=== PATIENT | male | born 1960 | race Caucasian/White ===

== ENCOUNTER → 2021-07-22 10:49 | Outpatient (CLI) | payer OTHER, SELFPAY ==
--- NOTE | 2021-07-22 10:51 | DI.RAD.S_ITS ---
PROCEDURE: XR TIBIA FIBULA LT 2V INDICATIONS: left lower leg injury L I TECHNIQUE: 2 views of the tibia and fibula were acquired. COMPARISON: None. FINDINGS: Bones: No fractures or dislocations. No suspicious bony lesions. Soft tissues: No suspicious soft tissue calcifications or masses. IMPRESSION: No evidence acute bony abnormality of the left tibia and fibula Dictated by: Ish Anton M.D. on 07/22/2021 at 14:26 Approved by: Ish Anton M.D. on 07/22/2021 at 14:27
== END ==
PROVIDERS: PCP Family Medicine; Referring Provider Nurse Practitioner Family; Visit Provider Nurse Practitioner Family
DX: S89.92XA Unspecified injury of left lower leg, initial encounter (principal); X58.XXXA Exposure to other specified factors, initial encounter
CPT/HCPCS: 73590